=== PATIENT | female | born 2000 | race Two or more races ===

== ENCOUNTER 2024-07-13 20:16 | Emergency (ER) | payer MEDICAID, SELFPAY ==
[2024-07-13 20:18] VITALS: BMI 32.9
--- NOTE | 2024-07-13 20:21 | EKG_ITS ---
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
[2024-07-13 20:44] VITALS: BP 169/97; PULSE 61; RESP 18; TEMP 36.6; O2SAT 98
--- NOTE | 2024-07-13 21:37 | PD.EDANX ---
ED Anxiety RME/HPI General Chief Complaint: General Adult/Misc Complain Stated Complaint: FELT LIKE FAINTING TODAY, HEAVINESS IN CHEST Time Seen by Provider: 07/13/24 21:05 Arrival date/time: 07/13/24 20:16 24F with history of gestational HTN and anxiety presents to ED with episode earlier today of lightheadedness and chest heaviness. Patient symptoms disappeared prior to arrival in ED, but patient just wanted to be checked out. Limitations: no limitations Related Data Home Medications ?Medication ?Instructions ?Recorded ?Confirmed folic acid 800 mcg tablet 800 mcg PO QDAY 01/10/24 01/10/24 vit no.95-ferrous 1 tab PO QDAY 01/10/24 01/10/24 fumarate 28 mg-folic acid 800 mcg tablet () Previous Rx's ?Medication ?Instructions ?Recorded docusate sodium 100 mg capsule 100 mg PO BID #60 caps 01/11/24 (Colace) ibuprofen 800 mg tablet 800 mg PO Q6H PRN pain #120 tabs 01/11/24 lanolin 50 % topical ointment 1 applic topical TID PRN skin 01/11/24 irritation #15 tubes labetalol 200 mg tablet 200 mg PO BID #60 tabs 01/13/24 Allergies Allergy/AdvReac Type Severity Reaction Status Date / Time No Known Allergies Allergy Unverified 01/11/24 08:38 Review of Systems Review of Systems Systems Reviewed: All systems reviewed, normal except as documented Constitutional Constitutional: Reports system reviewed and no additional complaints, except as documented, Denies fever(s) and Denies headache(s) ENT Ears, Nose, Mouth, and Throat: Denies disequilibrium and Denies headache(s) Cardiovascular Cardiovascular: Reports system reviewed and no additional complaints, except as documented, Reports as per HPI, Reports chest pain (pressure/heaviness) and Denies dyspnea Respiratory Respiratory: Reports system reviewed and no additional complaints, except as documented, Denies cough and Denies dyspnea Gastrointestinal Gastrointestinal: Reports system reviewed and no additional complaints, except as documented, Denies abdominal pain, Denies nausea and Denies vomiting Neurologic Neurologic: Reports system reviewed and no additional complaints, except as documented, Reports as per HPI, Denies confusion, Denies disequilibrium, Denies headache(s) and Reports other (lightheadedness) Psychiatric Psychiatric: Denies confusion ED Exam General Limitations: Present no limitations General appearance: Present alert, in no apparent distress and anxious Head Head exam: Present atraumatic Eye Eye exam: Present normal appearance, PERRL and EOMI ENT ENT exam: Present normal exam, normal oropharynx and mucous membranes moist Neck Neck exam: Present normal inspection, full ROM and trachea midline Chest Chest inspection: Present normal inspection and symmetric chest wall rise Respiratory Respiratory exam: Present normal lung sounds bilaterally Cardiovascular Cardiovascular exam: Present regular rate, normal rhythm and normal heart sounds Abdominal Exam Abdominal exam: Present soft and normal bowel sounds Extremities Exam Extremities exam: Present normal inspection and full ROM Back Exam Back exam: Present normal inspection and full ROM Neurological Exam Neurological exam: Present alert, oriented X3 and CN II-XII intact Psychiatric Psychiatric exam: Present normal affect and normal mood Skin Skin exam: Present warm, dry, intact and normal color Course Quality Measures none Orders Category Date Time Status EKG (ED ONLY) *Do not use* NOW Care 07/13/24 20:21 Completed EKG (ED Only) Stat Exams 07/13/24 20:21 Draft Vital Signs Vital signs: Vital Signs Temperature 97.9 F 07/13/24 20:44 Pulse Rate 61 07/13/24 20:44 Respiratory Rate 18 07/13/24 20:44 Blood Pressure 169/97 H 07/13/24 20:44 Pulse Oximetry (%) 98 07/13/24 20:44 Oxygen Delivery Method Room Air 07/13/24 20:44 Anxiety MDM Narrative MDM Narrative: 24F with history of gestational HTN and anxiety presents to ED with episode earlier today of lightheadedness and chest heaviness. Patient symptoms disappeared prior to arrival in ED, but patient just wanted to be checked out. Physical exam reveals clear lungs and RRR. Normal WOB. Normal pupil response and EOM. CN II-XII grossly intact. Gait normal. Patient is afebrile, alert, but anxious. EKG is NSR. Digital Advertising Specialist given. Patient data External records reviewed:: [facility] previous records Clinical information provided by:: patient Social determinants that could affect healthcare access:: mental health Patient has the following chronic illnesses:: gestational HTN and anxiety How is presenting disease/condition affected by chronic disease/condition?: exacerbated by Evaluation data The following diagnostics were reviewed and interpreted by me:: EKG tracing(s) Lab and/or radiology exams considered but not ordered:: ordered Interpretation Summary: above Medications / Prescriptions Medications or Prescriptions considered but not ordered:: not ordered Medication administrations:: n/a Consultations Consultation(s) initiated? (list below): No Diagnosis Differential diagnosis anxiety: hyperventilation, panic disorder, acute anxiety and other (elevated BP w/o diagnosis of HTN) Most likely diagnosis given after review of the tests above:: elevated BP w/o diagnosis of HTN Admission Indicated Admission indicated?: not indicated Admission Request Was there a request for admission?: No Disposition Plan Disposition Plan: Discharge Discharge Attestation Discharge Attestation: The patient and all family members were given an opportunity to ask questions and understood the discharge instructions. Discharge instructions specifically effects, indications for sooner follow up or return to the emergency department, and the expected course of current diagnosis. Patient condition: Stable Discharge Plan Plan Patient Disposition: HOME (Self Care) Disposition Comment: Stable Prescriptions/Referrals Prescriptions/Med Rec: No Action folic acid 800 mcg tablet 800 mcg PO QDAY PNV cmb#95-ferrous fumarate-FA [] 28 mg iron- 800 mcg tablet 1 tab PO QDAY Patient Comments: TAKE 1 TABLET BY MOUTH EVERY DAY ibuprofen 800 mg tablet 800 mg PO Q6H MDD 4 PRN (Reason: pain) Qty: 120 0RF lanolin 50 % ointment 1 applic topical TID PRN (Reason: skin irritation) Qty: 15 0RF docusate sodium [Colace] 100 mg capsule 100 mg PO BID Qty: 60 0RF labetalol 200 mg tablet 200 mg PO BID Qty: 60 0RF Problem List Clinical Impression: Elevated BP without diagnosis of hypertension Patient/Caregiver Discharge Instructions Education Materials: ED Hypertension, To Be Confirmed Additional Instructions: Please follow-up with PCP within 24-48 hours and return immediately if symptoms worsen. Follow-up with PCP for official HTN diagnosis. Print Language: Setswana Stand Alone Forms: Patient Portal Info Letter PA/HEALTHCARE SCIENCE SPECIALIST Supervising Physician ANNE MARIE/LORAINE Supervising Physician: Dr. Knox
== END 2024-07-13 21:15 | disposition home or self-care (01) ==
LOC: SERX 21:07
PROVIDERS: Emergency Provider Emergency Medicine; PCP Family Medicine
DX: R03.0 Elevated blood-pressure reading, without diagnosis of hypertension (principal)
CPT/HCPCS: 93005; 99283